=== PATIENT | female | born 1990 | race Two or more races ===

== ENCOUNTER 2017-12-29 20:58 | Emergency (ER) | END 2017-12-30 00:15 | disposition home or self-care (01) ==

== ENCOUNTER 2018-12-11 18:34 | Emergency (ER) | payer OTHER ==
[~2018-12-11] VITALS: Ht 170.2 cm; Wt 99.6 kg
[~2018-12-11 18:34] MED LIST: LORA1TAB PO
[2018-12-11 18:38] VITALS: Ht 170.2 cm; Wt 99.6 kg
== END 2018-12-11 20:11 | disposition home or self-care (01) ==
LOC: FTE 18:34
DX: M25.561 Pain in right knee (principal)
CPT/HCPCS: 99282